=== PATIENT | female | born 1955 | race Caucasian/White ===

== ENCOUNTER → 2016-08-16 | Outpatient (CLI) | payer BC ==
--- NOTE | 2016-08-16 15:16 | REPMRS ---
Patient History The patient states she had a clinical breast exam in 07/2016. Patient is postmenopausal. Family history of breast cancer in sister at age 50, ovarian cancer in mother at age 50 or over, breast cancer in 2 maternal aunts at age 50 or over, and breast cancer in maternal cousin under age 50. Digital Woman Screen Mammo: August 16, 2016 - Exam #: [id number] Bilateral CC and MLO view(s) were taken. Technologist: Gail Barr, Technologist Prior study comparison: August 15, 2015, digital woman screen mammo performed at [facility]. August 14, 2014, digital woman screen mammo performed at [facility]. FINDINGS: There are scattered fibroglandular densities. There has been no change in the appearance of the mammogram from the prior studies. There is a mild amount of residual fibroglandular tissue which is fairly symmetric. There is no interval development of dominant mass, architectural distortion, or clustered microcalcification suggestive of malignancy. Scattered lymph nodes are seen in the bilateral axillae. No significant changes when compared with prior studies. ASSESSMENT: BI-RADS/ACR category 2 mammogram. Benign finding(s). Recommendation Routine screening mammogram in 1 year (for women over age 40). This mammogram was interpreted with the aid of an FDA-approved computer-aided dectection system. A. Negative x-ray reports should not delay biopsy if a dominant or clinically suspicious mass is present. B. Four to eight percent of cancers are not identified by mammography. C. Adenosis and dense breast may obscure an underlying neoplasm. Electronically Signed By: Zuhair Pimentel MD 08/16/16 [id number]
== END ==
LOC: M WHC 13:05
PROVIDERS: ATTEND Nurse Practitioner Family
DX: Z12.31 Encounter for screening mammogram for malignant neoplasm of breast (principal); Z78.0 Asymptomatic menopausal state; Z80.3 Family history of malignant neoplasm of breast

== ENCOUNTER 2017-02-24 12:28 | Emergency (ER) | payer BC ==
[~2017-02-24] VITALS: Ht 147.3 cm; Wt 96.5 kg
[2017-02-24] MEDS ORDERED: ADVA230A (12:49)
[2017-02-24] MEDS ORDERED: AMLO10TA2 (12:49)
[2017-02-24] MEDS ORDERED: PANT40TA2 (12:49)
[2017-02-24] MEDS ORDERED: HYDR100T (12:49)
[2017-02-24] MEDS ORDERED: ALBU17IN2 (12:49)
[2017-02-24] MEDS ORDERED: VALS320T3 (12:49)
[2017-02-24] MEDS ORDERED: CARV12.5 (12:49)
[2017-02-24] MEDS ORDERED: NORT25CA2 (12:49)
[2017-02-24] MEDS ORDERED: **hydrALAZINE** 50 MG TAB PO ONE (14:00)
[2017-02-24] MEDS ORDERED: hydroCHLOROthiazide 25 MG TAB PO ONE (14:00)
[2017-02-24] MEDS ORDERED: VALSARTAN 80 MG TAB (DIOVAN) PO ONE (14:00)
--- NOTE | 2017-02-24 14:20 | REP ---
CT Head without contrast HISTORY: Headache COMPARISON: None There is no intraparenchymal hemorrhage, acute infarct, mass or midline shift. The ventricular system is normal in appearance. There is no extra cerebral collection. There is no fracture. The visualized sinuses are clear. IMPRESSION: There is no intracranial lesion. Signed by Brock Dixon MD 02/24/2017 02:11 P
[2017-02-24] MEDS ORDERED: LABETALOL HCL 100 MG/20 ML VIAL IV STA (14:50)
[2017-02-24 15:00] LABS: BASO % 0.6 % (0.0-1.0); EOS # 0.2 K/mm3 (0.0-0.50); EOS % 2.3 % (0.0-3.0); LARGE UNSTAINED CELL # 0.1 K/mm3 (0.0-0.4); LARGE UNSTAINED CELL % 1.4 % (0.0-4.0); LYMPH # 1.1 K/mm3 (1.5-4.5); MEAN CORPUSCULAR HEMOGLOBIN 30.6 pg (27.0-33.0); MEAN CORPUSCULAR HGB CONC 34.9 g/dl (32.0-36.5); MEAN CORPUSCULAR VOLUME 87.8 fl (80.0-96.0); MONO # 0.4 K/mm3 (0.0-0.8); MONO % 5.5 % (0.0-5.0); NEUTROPHILS # 6.1 K/mm3 (1.8-7.7); NEUTROPHILS % 77.2 % (36.0-66.0); PLATELET COUNT, AUTOMATED 304 k/mm3 (150-450); RED CELL DISTRIBUTION WIDTH 13.3 % (11.5-14.5); WHITE BLOOD COUNT 7.8 K/mm3 (4.0-10.0)
[2017-02-24 15:20] LABS: ANION GAP 10 MEQ/L (8-16); BLOOD UREA NITROGEN 14 MG/DL (7-18); CALCIUM LEVEL 9.5 MG/DL (8.8-10.2); CARBON DIOXIDE LEVEL 27 MEQ/L (21-32); CHLORIDE LEVEL 104 MEQ/L (98-107); CREATININE FOR GFR 1.21 MG/DL (0.55-1.02); GLOMERULAR FILTRATION RATE 48.3 (>45); GLUCOSE, FASTING 93 MG/DL (80-110); POTASSIUM SERUM 3.7 MEQ/L (3.5-5.1); SODIUM LEVEL 141 MEQ/L (136-145)
[2017-02-24 15:43] VITALS: BP 194/96
--- NOTE | 2017-02-25 08:12 | ECGEPIP ---
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
--- NOTE | 2017-02-25 09:16 | REP ---
CHEST X-RAY: Two views. HISTORY: Hypertension. Evaluate for CHF. Comparison study: February 22, 2009. FINDINGS: The lungs are well inflated and clear. Pleural angles are sharp. The heart is mildly enlarged with cardiothoracic ratio measuring 15.7 cm over 28.4 cm. Pulmonary vasculature is not increased. There are degenerative changes in the thoracic spine. IMPRESSION: Mild cardiomegaly. Otherwise no acute disease. Signed by Darin Rosa MD 02/25/2017 10:07 A
== END 2017-02-24 18:33 | disposition home or self-care (01) ==
LOC: M ED 12:28
DX: I10 Essential (primary) hypertension (principal); R00.0 Tachycardia, unspecified; D86.9 Sarcoidosis, unspecified; K51.90 Ulcerative colitis, unspecified, without complications; Z79.899 Other long term (current) drug therapy; Z79.51 Long term (current) use of inhaled steroids

== ENCOUNTER → 2017-06-06 | Outpatient (REF) | payer BC ==
[~2017-06-06] MED LIST: ADVA230A; ALBU17IN2; AMLO10TA2; CARV12.5; HYDR100T; NORT25CA2; PANT40TA2; VALS320T3
[2017-06-06 18:49] LABS: FOLATE 12.2 NG/ML
== END ==
LOC: M LABNEURO 14:34
PROVIDERS: ATTEND Psychiatry & Neurology Neurology
DX: Z13.1 Encounter for screening for diabetes mellitus (principal)

== ENCOUNTER → 2017-10-14 | Outpatient (REF) | payer BC ==
[2017-10-19 14:18] LABS: HPV HYBRID CAPTURE II Negative (Negative)
== END ==
LOC: M SFHCWAGY 15:10
DX: Z12.4 Encounter for screening for malignant neoplasm of cervix (principal)
CPT/HCPCS: G0123

== ENCOUNTER → 2017-10-14 | Outpatient (CLI) | payer BC | LOC: M WHC 14:33 | DX: Z12.31 Encounter for screening mammogram for malignant neoplasm of breast (principal) | CPT/HCPCS: 77067 ==

== ENCOUNTER → 2018-04-28 | Outpatient (CLI) | payer BC | LOC: M PLARAD 14:38 | DX: M51.26 Other intervertebral disc displacement, lumbar region (principal); M51.27 Other intervertebral disc displacement, lumbosacral region; M48.061 Spinal stenosis, lumbar region without neurogenic claudication; N28.1 Cyst of kidney, acquired | CPT/HCPCS: 72148 ==

== ENCOUNTER → 2018-06-08 | Outpatient (REF) | payer BC ==
[2018-06-08 18:05] LABS: IMMUNOGLOBULIN E 91.3 IU/ML (<100)
[2018-06-12 14:12] LABS: D001-IgE D pteronyssinus <0.10 kU/L (Class 0); E001-IgE Cat Epith/Dander < 0.10 kU/L (Class 0); E005-IgE Dog Dander < 0.10 kU/L (Class 0); G002-IgE Bermuda Grass < 0.10 kU/L (Class 0); G008-IgE Kentucky Bluegrass < 0.10 kU/L (Class 0); M001-IgE Penicillium chrysogen < 0.10 kU/L (Class 0); M002 IgE Cladosporium herbaru < 0.10 kU/L (Class 0); M003 IgE Aspergillus fumigatu < 0.10 kU/L (Class 0); M006-IgE Alternaria alternata < 0.10 kU/L (Class 0); T001-IgE Maple/Box Elder < 0.10 kU/L (Class 0); T003-IgE Common Silver Birch < 0.10 kU/L (Class 0); T006-IgE Cedar, Mountain < 0.10 kU/L (Class 0); T007-IgE Oak, White < 0.10 kU/L (Class 0); T008-IgE Elm, American < 0.10 kU/L (Class 0); T015-IgE Ash, White < 0.10 kU/L (Class 0); T041-IgE Hickory, White < 0.10 kU/L (Class 0); T070-IgE White Mulberry < 0.10 kU/L (Class 0); W001-IgE Ragweed, Short < 0.10 kU/L (Class 0); W009-IgE Plantain, English < 0.10 kU/L (Class 0); W014-IgE Pigweed, Rough < 0.10 kU/L (Class 0); W018-IgE Sheep Sorrel < 0.10 kU/L (Class 0)
== END ==
LOC: M LAB REF 17:16
DX: J45.40 Moderate persistent asthma, uncomplicated (principal)
CPT/HCPCS: 82785

== ENCOUNTER → 2018-09-21 | Outpatient (CLI) | payer BC ==
[~2018-09-21] MED LIST changes: -AMLO10TA2; +AMLO10TA5; +METHACHOLINE KIT (J7674) INH ONE; -PANT40TA2; +PANT40TA3
[2018-09-21 10:06] LABS: ABG HCO3 25.4 MEQ/L (22.0-26.0); ABG O2 SATURATION 94.8 % (95.0-99.0); ABG PARTIAL PRESSURE CO2 39.7 mmHg (35.0-45.0); ABG PARTIAL PRESSURE O2 75.1 mmHg (75.0-100.0); ABG STANDARD HCO3 25.3 MEQ/L (22.0-26.0); ABG TOTAL CO2 26.6 MEQ/L (23.0-31.0); ABG pH (ARTERIAL) 7.424 UNITS (7.350-7.450)
--- NOTE | 2018-09-21 15:31 | PFTRPT ---
Height: 58.50 Inches Weight: 187.00 Lbs BSA: 1.78 Diagnosis: R05 DATE OF PROCEDURE: 09/21/2018 ORDERED BY: Dr. Singh Spirometry: Pre and post bronchodilator study of excellent technical quality. Forced vital capacity normal. FEV1 in proportion. Obstructive index is, therefore, normal. Flow Volume Loop: Expiratory limb of the flow volume loop is normal. Lung Volumes: Total lung capacity normal. Residual volume in proportion. Diffusing Capacity: Diffusing capacity is reduced but is appropriate for alveolar volume. Hemoglobin: Hemoglobin acceptable at 13.1. Airway Mechanics: Airway resistance and conductance are normal. IMPRESSION: Decline in the absolute diffusing capacity. Please correlate clinically. MTDD
== END ==
LOC: M CARPUL 09:20
PROVIDERS: ATTEND Internal Medicine Pulmonary Disease
DX: R05 Cough (principal); R06.00 Dyspnea, unspecified

== ENCOUNTER → 2018-10-23 | Outpatient (CLI) | payer BC ==
[~2018-10-23] MED LIST changes: -METHACHOLINE KIT (J7674) INH ONE
--- NOTE | 2018-10-23 16:38 | REPMRS ---
Patient History The patient states she had a clinical breast exam in 09/2018. Family history of breast cancer at age 50 in sister, breast cancer at age 50 or over in maternal aunt, breast cancer under age 50 in maternal cousin, ovarian cancer at age 50 or over in mother, breast cancer at age 50 or over in maternal aunt. 3D TOMOSYNTHESIS WAS PERFORMED. Digital Woman Screen Mammo: October 23, 2018 - Exam #: [id number] Bilateral CC and MLO view(s) were taken. Technologist: Cristy Mcadams, Technologist Prior study comparison: October 14, 2017, digital woman screen mammo performed at [facility]. August 16, 2016, digital woman screen mammo performed at [facility]. FINDINGS: The breast tissue is heterogeneously dense. This may lower the sensitivity of mammography. There has been no change in the appearance of the mammogram from the prior studies. There is a moderate amount of residual fibroglandular tissue which is fairly symmetric. There is no interval development of dominant mass, areas of architectural distortion, or clustered microcalcification typical of malignancy. Assessment: BI-RADS/ACR category 1 mammogram. Negative Mammogram. Recommendation Routine screening mammogram in 1 year (for women over age 40). This mammogram was interpreted with the aid of an FDA-approved computer-aided dectection system. Electronically Signed By: Wilbert Greer MD 10/23/18 [id number]
== END ==
LOC: M WHC 13:30
PROVIDERS: ATTEND Nurse Practitioner Family
DX: Z12.31 Encounter for screening mammogram for malignant neoplasm of breast (principal); Z80.3 Family history of malignant neoplasm of breast; Z80.41 Family history of malignant neoplasm of ovary

== ENCOUNTER → 2018-10-30 | Outpatient (CLI) | payer BC ==
--- NOTE | 2018-11-08 17:09 | SLEEPHOME ---
DATE OF PROCEDURE: 10/30/2018 INTERPRETATION: Diagnostic home sleep testing was performed for reevaluation of known obstructive sleep apnea with moderate sleep apnea seen on study in 2011. However she has lost 33 pounds since that evaluation and is not experiencing PND at the frequency that she was previously. Her sleep apnea was untreated. Portable home monitoring was performed using NOX-T3 respiratory monitoring device. Continuous record was made of pulse, oxygen saturation, air flow, chest and abdominal strain. There were 541 minutes of date analyzed presumed sleep. During the sleep interval, 31 respiratory events were identified of 10 seconds in duration or longer for an respiratory event index of 3.4. The events were predominately obstructive hyopneas and apneas though a few mixed events were present. The patient's baseline saturation was 92% with a minimal recorded value of 81% which may have been artifact. I suspect the true radha is around the mid 80's. Patient's baseline pulse was 51 beats per minute with a high of 128 beats per minute. Testing was performed predominately in the lateral position. IMPRESSION: Normal home sleep test. Respiratory event index of 3.4 does not suggest sleep disorder breathing. RECOMMENDATIONS: Recommend the patient be sent to a sleep disorder center for formal polysomnogram if clinical suspicion remains high for obstructive sleep apnea. JULIA
== END ==
LOC: M SLEEP HO 12:52
PROVIDERS: ATTEND Internal Medicine Pulmonary Disease
DX: R40.0 Somnolence (principal)

== ENCOUNTER → 2019-04-03 | Outpatient (CLI) | payer BC ==
[2019-04-03 15:16] LABS: FOLATE 12.6 NG/ML; RHEUMATOID FACTOR QUANT < 10.0 IU/ML (<15.0); VITAMIN B12 LEVEL 385 PG/ML
[2019-04-03 15:27] LABS: HEMOGLOBIN A1c 5.6 %
[2019-04-08 08:20] LABS: ANTINUCLEAR ANTIBODIES DIRECT Negative (Negative); VITAMIN B1 LEVEL WHOLE BLOOD 122.8 nmol/L (66.5-200.0); VITAMIN B6,PYRIDOXAL PHOSPHATE 4.3 ug/L (2.0-32.8); VITAMIN E(ALPHA TOCOPHEROL) 11.4 mg/L (9.0-29.0); VITAMIN E(GAMMA TOCOPHEROL) 1.6 mg/L (0.5-4.9)
== END ==
LOC: M LAB 13:46
PROVIDERS: ATTEND Psychiatry & Neurology Neurology
DX: E11.9 Type 2 diabetes mellitus without complications (principal); E07.9 Disorder of thyroid, unspecified; R41.0 Disorientation, unspecified

== ENCOUNTER → 2019-10-25 | Outpatient (CLI) | payer BC ==
--- NOTE | 2019-10-25 15:31 | REPMRS ---
Patient History The patient states she had a clinical breast exam in September 2019.Family history of breast cancer at age 50 in sister, breast cancer at age 50 or over in maternal aunt, breast cancer under age 50 in maternal cousin, ovarian cancer at age 50 or over in mother, breast cancer at age 50 or over in maternal aunt. Digital Woman Screen Mammo: October 25, 2019 - Exam #: [id number] Bilateral CC and MLO view(s) were taken. Technologist: Grisel Stern, Technologist Prior study comparison: October 23, 2018, bilateral digital woman screen mammo performed at [facility]. October 14, 2017, digital woman screen mammo performed at [facility]. August 16, 2016, digital woman screen mammo performed at [facility]. FINDINGS: There are scattered fibroglandular densities. The Volpara volumetric breast density category is:B. There has been no change in the appearance of the mammogram from the prior studies. There is a mild amount of scattered fibroglandular density which is fairly symmetric. There is no interval development of dominant mass, architectural distortion, or grouped microcalcification suggestive of malignancy. 3-D tomosynthesis shows no additional findings. Assessment: BI-RADS/ACR category 1 mammogram. Negative Mammogram. Recommendation Routine screening mammogram of both breasts in 1 year (for women over age 40). This patient's Lifetime Breast Cancer Risk is estimated at 13.3 %. This mammogram was interpreted with the aid of an FDA-approved computer-aided dectection system. Electronically Signed By: Irwin Rosa MD 10/25/19 [id number]
== END ==
LOC: M WHC 13:36
PROVIDERS: ATTEND Nurse Practitioner Family
DX: Z12.31 Encounter for screening mammogram for malignant neoplasm of breast (principal); Z80.3 Family history of malignant neoplasm of breast; Z80.41 Family history of malignant neoplasm of ovary

== ENCOUNTER → 2019-10-25 | Outpatient (CLI) | payer BC | LOC: M PLALAB 14:26 | PROVIDERS: ATTEND Nurse Practitioner Family | DX: Z80.3 Family history of malignant neoplasm of breast (principal); Z80.0 Family history of malignant neoplasm of digestive organs; Z80.49 Family history of malignant neoplasm of other genital organs; Z80.1 Family history of malignant neoplasm of trachea, bronchus and lung ==

== ENCOUNTER → 2020-04-17 | Outpatient (CLI) | payer BC ==
[~2020-04-17] MED LIST changes: -AMLO10TA5; +AMLO1TAB25; +PANT40TA29; -PANT40TA3
--- NOTE | 2020-04-17 13:20 | PFTRPT ---
Height: 58.50 Inches Weight: 199.00 Lbs BSA: 1.83 Diagnosis: J45.3 DATE: 04/17/2020 ORDERING PHYSICIAN: Dr. Johnson Pre and post bronchodilator studies have excellent technical quality. Some difficulty with her required maneuvers is noted. Forced vital capacity is normal. FEV1 is in proportion, obstructive index is therefore normal. Expiratory limit of the flow-volume loop is normal. No significant bronchodilator response is identified. Diffusing capacity is normal. Hemoglobin is normal at 14.7. Airway resistance and conductance are normal. IMPRESSION: Normal study. MTDD
== END ==
LOC: M CARPUL 12:38
PROVIDERS: ATTEND Internal Medicine Pulmonary Disease
DX: J45.30 Mild persistent asthma, uncomplicated (principal)

== ENCOUNTER → 2020-10-28 | Outpatient (CLI) | payer BC ==
--- NOTE | 2020-10-28 12:57 | REP ---
INDICATION: SCR MAMMO. COMPARISON: Multiple TECHNIQUE: Digital screening mammography was carried out bilaterally in the CC and MLO projections using both 2D and 3D modalities and compared to the prior exams. By history, the patient has no complaints of a palpable breast abnormality or other significant breast complaints. FINDINGS: The breasts are unchanged in size and shape. Once again, dense heterogenous nodular fibroglandular elements are seen bilaterally to such a degree that the sensitivity of the mammogram in detecting cancers decreased. In the retroareolar region of the right breast near the 6 o'clock position there is a lauri density. This has partially obscured margins. No other suspicious features are seen in either breast. Benign calcifications are again seen bilaterally. There is no skin thickening or nipple retraction. The Volpara volumetric breast density pattern is b. IMPRESSION: BIRADS/ACR category 0. Lauri density in the right breast as described above and for which diagnostic digital magnified spot compression views are recommended in the CC and MLO projections along with diagnostic ultrasonography over the region. This patient's Tyrer-Cuzick lifetime breast cancer risk assessment score is 12.7%. This mammogram was interpreted with the aid of an FDA-approved computer-aided detection system. The patient states she had a clinical breast exam in October 2020. The patient letter being requested is M0. RECOMMENDATION: As above <Electronically signed by Koko Brewer > 10/28/20 [id number]
== END ==
LOC: M WHC 11:26
PROVIDERS: ATTEND Nurse Practitioner Women's Health
DX: R92.2 Inconclusive mammogram (principal)

== ENCOUNTER → 2020-10-28 | Outpatient (REF) | payer BC | LOC: M SFHCWAGY 14:57 | PROVIDERS: ATTEND Nurse Practitioner Women's Health | DX: Z12.4 Encounter for screening for malignant neoplasm of cervix (principal); Z01.419 Encounter for gynecological examination (general) (routine) without abnormal findings ==

== ENCOUNTER → 2020-11-17 | Outpatient (CLI) | payer BC ==
--- NOTE | 2020-11-17 15:07 | REP ---
INDICATION: ADDITIONAL VIEWS RT BREAST. Screening mammography from October 28, 2020 BI-RADS category 0 due to a nodular ángel density in the medial aspect of the right breast. COMPARISON: Comparison mammography October 28, 2020, October 25, 2019, and October 23, 2018. TECHNIQUE: Magnified focal spot-compression CC, true mL, and MLO views of the right breast are obtained. A non magnified true mL view with 3D tomography is performed. Targeted right breast sonography is carried out. This mammogram was interpreted with the aid of an FDA-approved computer-aided detection system. FINDINGS: Scattered fibroglandular elements are noted. There are several small stable nodular opacities in the inferomedial quadrant of the right breast. One of these is a previously marked skin mole. In addition, there is arrrrrrr well-circumscribed 12 mm nodule in the inferomedial quadrant anterior 3rd which corresponds to the finding on screening mammography. The Volpara volumetric breast density pattern is b. Targeted ultrasound: Targeted right breast sonography is carried out inferiorly and medially, 3:00 to 6:00 position. At the 6 o'clock position, there is a hypoechoic solid lesion 1 cm from the nipple measuring 1.2 x 0.7 x 0.9 cm. This is felt to account for the mammographic opacity. It has a slightly angular anterior margin and must be considered suspicious. IMPRESSION: BIRADS/ACR category 4 suspicious right breast mammographic and sonographic findings. Histologic sampling is warranted. This patient's Tyrer-Cuzick lifetime breast cancer risk assessment score is 12.7%. RECOMMENDATION: Recommend ultrasound-guided needle biopsy right breast with marker clip placement and post clip placement right breast mammography.. The patient letter being requested is M4. <Electronically signed by Irwin Rosa > 11/17/20 [id number]
== END ==
LOC: M WHC 12:56
PROVIDERS: ATTEND Nurse Practitioner Women's Health
DX: Z12.31 Encounter for screening mammogram for malignant neoplasm of breast (principal)

== ENCOUNTER → 2021-01-05 | Outpatient (CLI) | payer BC ==
[~2021-01-05] MED LIST changes: +PROHANCE 279.3MG/ML 15ML VIAL As Ordered ONE; +PROHANCE 279.3MG/ML 5ML VIAL As Ordered ONE
--- NOTE | 2021-01-05 13:20 | REP ---
INDICATION: ABN MAMMO, FAM HX OF BREAST CA. Patient high risk of stroke on blood thinners. COMPARISON: Comparison is made with mammography and sonography from November 17, 2020 and mammography from October 28, 2020. TECHNIQUE: Three Nicolette MRI imaging was performed with a dedicated breast coil. Axial, coronal, and sagittal T1 and T2 weighted scans were obtained with and without fat saturation in the usual fashion. The study includes dynamically acquired post gadolinium-enhanced imaging with image subtraction. Maximum intensity projection and multi planar reformation imaging is included as well. This study is interpreted with the aid of CerephexD, an FDA approved computer aided detection (CAD) software program, on a dedicated breast MRI workstation. The gadolinium enhancement dose is 18 mL of intravenous ProHance. FINDINGS: There is a mild to moderate amount of fibroglandular tissue bilaterally corresponding with the mammographic pattern. There is mild background parenchymal enhancement. There is no evidence of axillary lymphadenopathy or significant breast cystic change. High-resolution pre and post-contrast T1 and T2 weighted scans show no suspicious morphologic abnormality in either breast. Dynamically acquired sequential postcontrast images show no suspicious area of enhancement and washout kinetics in either breast to suggest malignancy. Subtraction images show no additional abnormality. In the inferior aspect of the right breast anterior 3rd 6 o'clock position, there is a low T1 high T2 signal intensity heterogeneously enhancing mass lesion, 1.3 cm in greatest diameter. On dynamically acquired post contrast images, this is seen to enhance. There appear to be internal nonenhancing septations within the lesion which would suggests the possibility of fibroadenoma. However, I note that the lesion is new from prior mammography October 23, 2018. This is felt to correspond with the nodule visible in the right breast inferiorly on recent mammography. There are other scattered areas of fibro the glandular nodular enhancement in both breasts. No other dominant density is seen. IMPRESSION: BI-RADS category 4 suspicious bilateral breast MRI findings. There is a 13 mm nodule inferiorly at 6 o'clock position the right breast which has some MR features of fibroadenoma. However, I note that the lesion is new when compared with prior mammography. Histologic sampling should be considered. <Electronically signed by Irwin Rosa > 01/05/21 [id number]
== END ==
LOC: M RAD 10:38
PROVIDERS: ATTEND Nurse Practitioner Women's Health
DX: R92.8 Other abnormal and inconclusive findings on diagnostic imaging of breast (principal); Z92.29 Personal history of other drug therapy; Z71.89 Other specified counseling; Z80.3 Family history of malignant neoplasm of breast

== ENCOUNTER → 2021-01-14 | Outpatient (CLI) | payer BC ==
[~2021-01-14] MED LIST changes: -PROHANCE 279.3MG/ML 15ML VIAL As Ordered ONE; -PROHANCE 279.3MG/ML 5ML VIAL As Ordered ONE
[2021-01-14 14:56] VITALS: BP 148/76
--- NOTE | 2021-01-14 22:11 | ROOPDOC ---
[facility] Report Of Operation Report of Operation DATE OF PROCEDURE: 01/14/21 DIAGNOSIS: right breast suspicious lesion PROCEDURE: ultrasound guided biopsy of the right breast suspicious lesion with clip placement SURGEON: Lucretia Medina BLOOD LOSS: minimal COMPLICATIONS: none Lidocaine 1% LOT [id number] Expiration 07/2024 Sodium Bicarbonate 8.4% LOT [id number] Expiration 07/2021 Hydromark clip LOT [id number] Expiration 09/2023 SHAPE: 4 Bx device: BARD [id number] x10 cm LOT [id number] Expiration 09/2023 Informed consent was obtained. The most common risk and possible complications including bleeding, hematoma, bruising, infection, injury to surrounding structures were explained to the patient and the patient expressed understanding. Of note, patients neurologist did not allow stopping patients ASA and Plavix. Patient was placed on the bed in the supine position. Appropriate time out was done stating patients name, date of , and the procedure to be performed. The right breast was prepped and draped in the usual fashion. The ultrasound was used to confirm the location of the lesion in the right breast at 6:00 1.5 centimeters from the nipple. Plain Lidocaine 1% and 8.4% sodium bicarbonate 10:1 mix was used to anesthetize the skin, the biopsy site and tissues along the anticipated biopsy tract. Small skin incision was made with blade number 11. BARD Marquee 14G cannula with introducer ([id number]) was inserted through the incision and advanced under the ultrasound guidance to position immediately adjacent to the lesion. Next, the introducer was removed and BARD Marquee 14G biopsy device was places in the cannula. Pre-biopsy imaging, and post-biopsy imaging were captured. Five good core biopsies were taken at various levels of the lesion. Specimen was placed in formaldehyde, labeled with appropriate biopsy site and patients name, and sent to pathology for evaluation. Next, the biopsy device was withdrawn and a clip introducer was inserted into the biopsy site via the cannula. SHAPE 4 Hydromark clip was deployed under sonographic guidance. Post-clip placement image was captured. Manual pressure over the biopsy cavity and tract was held after the clip introducer was withdrawn. No bleeding was noted upon removal of the pressure. Post-biopsy mammogram of the right breast was obtained and showed clip in expected position. Postprocedural dressing was placed. Patient tolerated procedure well. Discharge instructions were discussed with the patient and the patient expressed understanding. LUCRETIA MEDINA DO Jan 14, 2021 22:11
== END ==
LOC: M WHCPRO 06:32
PROVIDERS: ATTEND Surgery
DX: D24.1 Benign neoplasm of right breast (principal)

== ENCOUNTER → 2021-01-19 | Outpatient (CLI) | payer BC ==
[~2021-01-19] MED LIST changes: +PROHANCE 279.3MG/ML 15ML VIAL As Ordered ONE; +PROHANCE 279.3MG/ML 5ML VIAL As Ordered ONE
--- NOTE | 2021-01-20 08:53 | REP ---
INDICATION: LT OVARIAN ENLARGEMENT, PELVIC PAIN. COMPARISON: Comparison pelvic sonography is from December 30, 2020. TECHNIQUE: Axial, sagittal, and coronal imaging planes utilized. T1 and T2 weighted sequences include spin echo, fast spin echo, inversion recovery, diffusion-weighted scans and postcontrast T1 weighted fat sat images.. The gadolinium enhancement dose is 18 mL of intravenous ProHance. FINDINGS: MRI study confirms the presence of a very large predominantly solid, complex mass in the pelvis. This measures 23 cm in right to left by 13.9 cm anterior to posterior by 18.4 cm cranial to caudal. It is clearly separate from the uterus and a separate small postmenopausal right ovary is visible. Presumably, this represents a left ovarian mass although its epicenter is in the midline. There are multiple nabothian cysts in the otherwise unremarkable uterus. The urinary bladder is compressed anteriorly by the pelvo-abdominal mass which extends well above the level of the umbilicus. There is no visible ascites on T2 weighted scans. No adenopathy is appreciated. A normal caliber distal aorta is seen. There is no evidence of hydronephrosis seen. The lower poles of each kidney are included in the field of view. No bony destructive lesion is seen. The solid component of the tumor shows some degree of restricted diffusion and heterogeneous contrast enhancement. IMPRESSION: MR study confirms the presence of a 23 0.0 x 13.9 x 18.4 cm pelvic mass which appears to have arisen from the left ovary. 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 A normal postmenopausal right ovary is seen. There are nabothian cysts in the uterus. The uterus is otherwise unremarkable. No evidence of ascites or adenopathy is seen. <Electronically signed by Irwin Rosa > 01/20/21 [id number]
== END ==
LOC: M RAD 16:54
PROVIDERS: ATTEND Nurse Practitioner Women's Health
DX: N83.8 Other noninflammatory disorders of ovary, fallopian tube and broad ligament (principal); R10.2 Pelvic and perineal pain; R14.0 Abdominal distension (gaseous)

== ENCOUNTER → 2021-11-16 | Outpatient (CLI) | payer MEDICARE, BC ==
[~2021-11-16] MED LIST changes: -PROHANCE 279.3MG/ML 15ML VIAL As Ordered ONE; -PROHANCE 279.3MG/ML 5ML VIAL As Ordered ONE
== END ==
LOC: M WHC 12:51
PROVIDERS: ATTEND Surgery
DX: D48.60 Neoplasm of uncertain behavior of unspecified breast (principal)
CPT/HCPCS: 76642; 77066; G0279

== ENCOUNTER → 2022-09-07 | Outpatient (CLI) | payer MEDICARE, BC | LOC: M WHC 09:56 | PROVIDERS: ATTEND Surgery | DX: N64.59 Other signs and symptoms in breast (principal) | CPT/HCPCS: 77066; G0279 ==

== ENCOUNTER 2022-10-26 06:01 | Day surgery (SDC) | payer MEDICARE, BC ==
[~2022-10-26] VITALS: Ht 147.3 cm; Wt 95.2 kg
[~2022-10-26 06:01] MED LIST changes: -ADVA230A; +ADVA230A INH; +ALPR0.5T3 PO; -AMLO1TAB25; +AMLO1TAB25 PO; +ATOR40TA75 PO; +CARV6.25 PO; +CLOP75TA2 PO; +ECOT81TA5 PO; +HEPARIN SOD (PORCINE) 5000UNITS/ML 1ML VIAL/SYRINGE SQ ONE; +IRBE300T12 PO; +LEVO25TA5 PO; -PANT40TA29; +PANT40TA29 PO; +TRAM50TA2 PO; +VENTAER INH; +ceFAZolin SOD 2 GM in IV 1 EA IV ONE
[2022-10-26] MEDS ORDERED: LR 1,000 ML IV SCH ×2 (06:20→09:30)
[2022-10-26] MEDS ORDERED: ROCURONIUM BROMIDE 50MG/5ML VIAL As Ordered ONE (07:10)
[2022-10-26] MEDS ORDERED: LIDOCAINE 2% 100MG/5ML SDV (FOR ANES.) As Ordered ONE (07:10)
[2022-10-26] MEDS ORDERED: propofoL 200 MG/20 ML VIAL As Ordered ONE (07:10)
[2022-10-26] MEDS ORDERED: MIDAZOLAM INJ 2MG/2ML VIAL As Ordered ONE (07:11)
[2022-10-26] MEDS ORDERED: fentaNYL 100 MCG/2 ML INJECTION As Ordered ONE (07:11)
[2022-10-26] MEDS ORDERED: LIDOCAINE 1% SDV 30ML VIAL As Ordered ONE (07:16)
[2022-10-26] MEDS ORDERED: BUPIVACAINE HCL 0.25% 30ML VIAL As Ordered ONE (07:17)
[2022-10-26] MEDS ORDERED: ONDANSETRON 4MG 2ML VIAL As Ordered ONE (08:07)
[2022-10-26] MEDS ORDERED: ACETAMINOPHEN 1000MG 100ML IV BAG As Ordered ONE (08:16)
[2022-10-26] MEDS ORDERED: ePHEDrine SULFATE 25 MG/5 ML(5MG/ML) SYRINGE As Ordered ONE (08:51)
[2022-10-26] MEDS ORDERED: TRAM50TA2 PO (09:28)
[2022-10-26] MEDS ORDERED: HYDROMORPHONE HCL 0.5 MG/ 0.5 ML SYRINGE IV PRN (09:30)
[2022-10-26] MEDS ORDERED: ONDANSETRON 4MG 2ML VIAL IV PRN (09:30)
[2022-10-26] MEDS ORDERED: fentaNYL 100 MCG/2 ML INJECTION IV PRN (09:30)
[2022-10-26] MEDS ORDERED: oxyCODONE 5MG TAB PO PRN (09:30)
[2022-10-26 11:37] VITALS: BP 137/66
== END 2022-10-26 11:44 | disposition home or self-care (01) ==
LOC: M SDC 06:01
PROVIDERS: ATTEND Surgery
DX: N60.31 Fibrosclerosis of right breast (principal); I10 Essential (primary) hypertension; E78.00 Pure hypercholesterolemia, unspecified; E03.9 Hypothyroidism, unspecified; Z92.21 Personal history of antineoplastic chemotherapy; D86.9 Sarcoidosis, unspecified; I66.09 Occlusion and stenosis of unspecified middle cerebral artery; F41.9 Anxiety disorder, unspecified; F32.A Depression, unspecified; G43.909 Migraine, unspecified, not intractable, without status migrainosus; G57.93 Unspecified mononeuropathy of bilateral lower limbs; J45.909 Unspecified asthma, uncomplicated; Z85.43 Personal history of malignant neoplasm of ovary; Z79.899 Other long term (current) drug therapy; Z79.51 Long term (current) use of inhaled steroids; Z79.02 Long term (current) use of antithrombotics/antiplatelets; Z79.890 Hormone replacement therapy; Z79.891 Long term (current) use of opiate analgesic
CPT/HCPCS: 19101; 36415; 76942; 86850; 86900; 86901; 88307; A4648; J0131; J0690; J1100; J2250; J2405; J3010

== ENCOUNTER → 2023-03-31 | Outpatient (CLI) | payer MEDICARE, BC ==
[~2023-03-31] MED LIST changes: -HEPARIN SOD (PORCINE) 5000UNITS/ML 1ML VIAL/SYRINGE SQ ONE; -ceFAZolin SOD 2 GM in IV 1 EA IV ONE
== END ==
LOC: M WHC 08:45
PROVIDERS: ATTEND Nurse Practitioner Women's Health
DX: D48.60 Neoplasm of uncertain behavior of unspecified breast (principal); N64.89 Other specified disorders of breast
CPT/HCPCS: 77065; G0279

== ENCOUNTER → 2024-04-02 | Outpatient (CLI) | payer BC, MEDICARE | LOC: M WHC 13:47 | PROVIDERS: ATTEND Nurse Practitioner | DX: Z12.31 Encounter for screening mammogram for malignant neoplasm of breast (principal) ==